=== PATIENT | female | born 1980 | race Caucasian/White ===

== ENCOUNTER 2021-05-04 12:15 | Inpatient (IN) | payer MEDICARE, MEDICAID, SELFPAY ==
[2021-05-04 12:58] VITALS: BMI 26.4
[2021-05-04 13:05] VITALS: BP 117/80; PULSE 83; RESP 16; TEMP 37.1; O2SAT 99
[2021-05-04 14:00] VITALS: BP 117/80; PULSE 83; RESP 16; TEMP 37.1; O2SAT 99
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
[2021-05-04 17:00] LABS: Glucose Point of Care 181 mg/dL (70-110)
[2021-05-04] MEDS: diclofenac 75 mg DR Tablet PO (17:16)
[2021-05-04] MEDS: metformin 500 mg Tablet 1000 MG PO (17:17)
[2021-05-04] MEDS: gemfibrozil 600 mg Tablet PO (17:17)
[2021-05-04] MEDS: gabapentin 400 mg Capsule 800 MG PO ×2 (17:17→20:31)
[2021-05-04] MEDS: magnesium oxide 400 mg tablet PO ×2 (17:17→20:32)
[2021-05-04] MEDS: famotidine 20 mg Tablet PO (17:18)
[2021-05-04] MEDS: insulin lispro 100 unit/1 mL 10 UNIT SUBCUT (17:27)
[2021-05-04 20:17] VITALS: BP 129/79; PULSE 91; RESP 18; TEMP 36.6; O2SAT 99
[2021-05-04] MEDS: tizanidine 4 mg Tablet PO (20:32)
[2021-05-04] MEDS: hyDROXYzine 25 mg Capsule 50 MG PO (20:32)
[2021-05-04 20:48] LABS: Glucose Point of Care 207 mg/dL (70-110)
[2021-05-05 06:00] VITALS: BP 114/75; PULSE 72; RESP 18; TEMP 36.7; O2SAT 97
[2021-05-05 06:40] LABS: Glucose Point of Care 212 mg/dL (70-110)
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
[2021-05-05] MEDS: insulin lispro 100 unit/1 mL 10 UNIT SUBCUT ×3 (09:06→17:05)
[2021-05-05] MEDS: sertraline 50 mg Tablet 100 MG PO (11:40)
[2021-05-05] MEDS: lisinopril 10 mg Tablet PO (11:42)
[2021-05-05] MEDS: buPROPion XL (24 HR) 150 mg Tablet PO (11:42)
[2021-05-05] MEDS: hydroxychloroquine 200 mg Tablet PO (11:43)
[2021-05-05] MEDS: cetirizine 10 mg Tablet PO ×2 (11:44→17:05)
[2021-05-05] MEDS: glimepiride 2 mg Tablet PO (11:44)
[2021-05-05] MEDS: gemfibrozil 600 mg Tablet PO ×2 (11:44→17:04)
[2021-05-05] MEDS: ascorbic acid 500 mg Tablet 1000 MG PO (11:45)
[2021-05-05] MEDS: magnesium oxide 400 mg tablet PO ×3 (11:46→20:55)
[2021-05-05] MEDS: famotidine 20 mg Tablet PO ×2 (11:46→17:05)
[2021-05-05] MEDS: hyDROXYzine 25 mg Capsule 50 MG PO ×2 (11:54→20:56)
[2021-05-05] MEDS: gabapentin 400 mg Capsule 800 MG PO ×3 (11:54→20:55)
[2021-05-05 11:57] LABS: Glucose Point of Care 370 mg/dL (70-110)
[2021-05-05] MEDS: diclofenac 75 mg DR Tablet PO ×2 (12:22→17:19)
[2021-05-05] MEDS: cholecalciferol (vitamin D3) 5,000 unit Tablet 10000 UNIT PO (12:22)
[2021-05-05] MEDS: metformin 500 mg Tablet 1000 MG PO ×2 (12:23→17:04)
[2021-05-05 14:00] VITALS: BP 148/90; PULSE 94; RESP 18; TEMP 36.4; O2SAT 99
--- NOTE | 2021-05-05 14:27 | PC.NURSE ---
Medications- Medications pulled for patient, patient then refused to take medications due to she did not read the packages before opening. Also stated that she takes several of her medications at different times than currently ordered. Med list written for patient, confirmed times and doses with patient. Dr notified, orders given to adjust medications to patient's request. All initial meds that were pulled were wasted. All meds re-pulled, reviewed one at a time with patient then patient took meds as ordered.
[2021-05-05 14:37] LABS: Glucose Urine UA 4+ (Normal); Ketones Urine Negative (Negative); Protein Urine Neg (Negative); Urine Color Yellow (Yellow); pH Urine 5 (5-7)
[2021-05-05 14:38] LABS: Bilirubin Urine Neg (Negative); Blood Urine Neg (Negative); Leukocyte Esterase Urine Negative (Negative); Nitrate Urine Negative (Negative); Urobilinogen Urine Norm (Negative)
[2021-05-05 14:39] LABS: Add Urine Culture? No; Bacteria Urine 1+ /hpf; Squamous Epithelial Cell Urine 25-40 /hpf (0-5); Urine Appearance SL Hazy (CLEAR)
[2021-05-05] MEDS: tizanidine 4 mg Tablet PO (15:01)
[2021-05-05 16:00] LABS: Glucose Point of Care 285 mg/dL (70-110)
[2021-05-05 17:02] LABS: Glucose Point of Care 262 mg/dL (70-110)
[2021-05-05] MEDS: lurasidone 20 mg Tablet 40 MG PO (17:04)
[2021-05-05] MEDS: sitagliptin 100 mg Tablet PO (17:18)
[2021-05-05] MEDS: ondansetron 4 MG Tablet PO (19:28)
--- NOTE | 2021-05-05 19:31 | PC.NURSE ---
Zofran 4mg PO given for C/O nausea.
[2021-05-05 20:30] VITALS: BP 104/72; PULSE 89; RESP 17; TEMP 36.7; O2SAT 100
[2021-05-05] MEDS: atorvastatin 40 mg Tablet PO (20:56)
[2021-05-05 21:16] LABS: Glucose Point of Care 293 mg/dL (70-110)
[2021-05-06] MEDS: ondansetron 4 MG Tablet PO (02:51)
[2021-05-06] MEDS: tizanidine 4 mg Tablet PO (02:51)
[2021-05-06 05:39] VITALS: BP 104/72; PULSE 89; RESP 17; TEMP 36.7; O2SAT 100
[2021-05-06 07:51] LABS: Glucose Point of Care 280 mg/dL (70-110)
[2021-05-06] MEDS: sertraline 50 mg Tablet 100 MG PO (08:52)
[2021-05-06] MEDS: insulin lispro 100 unit/1 mL 10 UNIT SUBCUT ×3 (08:52→18:19)
[2021-05-06 11:32] LABS: Glucose Point of Care 154 mg/dL (70-110)
--- NOTE | 2021-05-06 13:48 | P.NPUPN_ITS ---
Subjective NPU Subjective: Interval history: Patient presents today reporting that she is adjusting to being back on her medication after not taking it, not eating and not taking her insulin. She reports that she has been in contact with her children that makes her feel better and she is feeling a little less irritable but continues to be somewhat ambivalent about treatment overall. A little later in the afternoon she was unresponsive in her room though her vitals were stable her blood sugar was 66 and so we gave her a shot of glucagon. Mental Status Exam MSE Comments: This is an overweight, versus obese, white female, with hospital scrubs on, with adequate grooming, and eye contact. No abnormal movements except for mild psychomotor retardation. Cooperative with exam in mild distress. Speech was decreased rate and volume. Mood described as okay I guess; affect congruent. Thought process, organized. Thought content: patient denied suicidal ideation and denied homicidal ideation. There were no delusions reported or noted, patient denied any auditory or visual hallucinations. Attention, concentration, and memory appear intact but were not formally tested. She is alert and oriented times three. Insight and judgment are limited, impulse control limited. Vitals/I&O/Wt Last Vital Signs Temp 98.0 F 05/06/21 05:39 Pulse 89 05/06/21 05:39 Resp 17 05/06/21 05:39 BP 104/72 05/06/21 05:39 Pulse Ox 100 05/06/21 05:39 Data NPU : 05/05/21 10:34 A&P Additional A&P Information (1) PTSD (post-traumatic stress disorder): (2) Borderline personality disorder: (3) Suicidal ideation: (4) Depression: Additional A&P Information This is a 41-year-old, white female, with post-traumatic stress disorder, borderline personality disorder, anxiety disorder, unspecified, suicidal ideation, and recently been non-adherent with her medication, who presents open to medication adjustments as long as they do not create problems if her status were to change. RECOMMENDATION AND PLAN: 1. Continue current medication. She will continue to stabilize on her normal home meds she has been missing as well as her insulin. 2. Encourage individual, group, and milieu therapy. 3. Continue q-15 minute checks for safety. Involuntary Hold Information 96 Hour Hold: 96 Hour Involuntary Admission: No Attestations NPU Medical Necessity Statement*: Inpatient hospitalization is medically necessary and the clinically appropriate intervention, at this time. We will monitor medications and make changes as indicated. Likely length of stay is 1-3 days. Coding Level of Care Code Acute Assistant Center Director for Mir Rosas
[2021-05-06 14:00] VITALS: BP 138/84; PULSE 81; RESP 14; TEMP 36.7; O2SAT 97
[2021-05-06 14:15] LABS: Glucose Point of Care 67 mg/dL (70-110)
--- NOTE | 2021-05-06 14:36 | PC.NURSE ---
Patient has remained isolative to room throughout morning. Did not get up for either breakfast or lunch. Patient is responsive to painful stimuli. Frequently repositions self in bed, gets pillows and blankets when needed but will not open eyes and interact with staff. VS have remained stable. FSBS rechecked at 1415 d/t receiving insulin but not eating lunch. FSBS 66 at that time. Patient able to remain sitting once staff assisted to bedside but would not open eyes or drink juice. notified, new orders for 1 mg IM glucagon. Administered to left glute at 1435. FSBS 129 at recheck at 1445. Patient remains in bed resting at this time.
[2021-05-06 14:52] LABS: Glucose Point of Care 129 mg/dL (70-110)
[2021-05-06 16:35] LABS: Glucose Point of Care 237 mg/dL (70-110)
[2021-05-06 21:00] VITALS: RESP 13
--- NOTE | 2021-05-06 21:55 | PC.NURSE ---
At 21:20 accu-check ( blood sugar ) was 61. Patients V/S were: BP;111/73, P; 67, O2 sat; 95% (RA)' Resp;16. Patient appeared raiza-Conscience, would blink with eyes closed upon verbal command, uncooperative upon assessment and oral intake offered (Applejuce,Pudding). Patient appeared to have awareness of verbal requests however unwilling to physically respond. Patient has history of similar behavior today during day shift was also given Glucagon 1mg IM for BS of low 60's. Dr Saha was notified and a telephone order for one time dose of Glucagon 1mg IM was received. Also order for Hospitalist Consult. Dr. Saha said he would contact Dr. Soriano (watermelon inspector Hospitalist) for DM II consult. Glucagon 1mg IM given at 22:00 Will re-check B.S. at 22:30. Upon reassessment at 22:30 BS was 229 V/S Stable / WNL. Patient continues to appear raiza-conscience.
[2021-05-06 22:06] LABS: Glucose Point of Care 61 mg/dL (70-110)
[2021-05-06 22:39] LABS: Glucose Point of Care 229 mg/dL (70-110)
[2021-05-06 23:39] LABS: Estmated Average Glucose 249; Hemoglobin A1C 10.3 % (4.0-6.0)
[2021-05-06 23:45] LABS: Anion Gap 15.3 (5-19); Blood Urea Nitrogen 23 mg/dL (6-20); Carbon Dioxide 21 mmol/L (22-29); Chloride 103 mmol/L (98-107); Glomerular Filtration Rate 92.2 mL/min (90-130); Glucose 244 mg/dL (65-115); Magnesium 1.8 mg/dL (1.7-2.3); Osmolality Calculated 292 mOsm/kg (285-295); Potassium 4.3 mmol/L (3.5-5.1); Sodium 135 mmol/L (136-145)
[2021-05-07 01:28] LABS: Glucose Point of Care 94 mg/dL (70-110)
[2021-05-07 03:06] LABS: Glucose Point of Care 66 mg/dL (70-110)
--- NOTE | 2021-05-07 04:33 | PC.NURSE ---
Patient last blood sugar check was 66. Patient is still being uncooperative in not drinking apple juice. Approximately 3-4 ml of apple juice was administered through a straw. Patient can be seen grimacing and fluttering eyes as well as swallowing occasionally. We tried to stimulate patient by sitting her up, pushing on pressure points and applying a bag of ice for a period of time, but patient still would not participate. Patient's shirt was changed due to apple juice thata was spit out and they were laid on back. They were Watched from the door and patient had repositioned self to side position of comfort, and she opened eyes to look at wall and shut eyes then yawned. Charge nurse notified Dr. Soriano. 1mg Glucagon IM was ordered.
[2021-05-07 05:20] LABS: Glucose Point of Care 80 mg/dL (70-110)
[2021-05-07 06:00] VITALS: BP 111/68; PULSE 68; RESP 18; O2SAT 95
[2021-05-07 06:10] LABS: Glucose Point of Care 283 mg/dL (70-110)
--- NOTE | 2021-05-07 06:23 | PC.NURSE ---
Glucagon 1mg IM given R gluteal per physians order.
--- NOTE | 2021-05-07 06:43 | P.CONIM_ITS ---
Providers/Reason For Consult Consulting Physician/Specialty*: Frase/Hosptialist Reason for Consult*: low blood sugar, high blood sugar in patient with diabetes Attending Physician: Kyle Saha MD Primary Care Provider: Unknown History of Present Illness History of Present Illness Aurelia Bowers is a 41 year old female admitted to neuropsychiatric unit on 05/04/21. Originally presented to [facility] on 05/02/21 with suicidal ideation. Reported starving herself in an attempt to . She also quit taking her medications. Reported that she might consider overdosing on her home insulin. She has reported to the psychiatrist she has labile blood sugars. She has a history of diabetes mellitus type II. Since arriving here at [facility], she was put on what was listed as her usual home diabetic meds by outside facility of levimir 25 units twice per day, novolog 10 units tidwm, glimiperide, metformin, januvia. Accuchecks are as noted here since arrival Laboratory Tests 05/04/21 05/04/21 05/05/21 16:57 20:41 06:27 POC Glucose 181 H 207 H 212 H 05/05/21 05/05/21 05/05/21 11:54 15:58 16:53 POC Glucose 370 H 285 H 262 H 05/05/21 05/06/21 05/06/21 21:08 07:48 11:30 POC Glucose 293 H 280 H 154 H 05/06/21 05/06/21 05/06/21 14:13 14:49 16:33 POC Glucose 67 L 129 H 237 H 05/06/21 05/06/21 05/07/21 21:20 22:36 01:24 POC Glucose 61 L 229 H 94 05/07/21 05/07/21 05/07/21 03:02 05:17 06:08 POC Glucose 66 L 80 283 H 05/07/21 05/07/21 07:19 09:24 POC Glucose 268 H 104 During the episodes in which she has had the low blood sugars in the last 24 hours, patient has not been willing or participatory in attempts to take juice or peanut butter and crackers orally. She has been given glucagon instead. Her behavior here as well as at [facility] has consisted of times when she will not respond to anything verbally. She would not open her eyes nor converse with me. That includes the times when her blood sugars have been low. Dr. Saha says that he does not think that she is truly unresponsive based on how she has been but he would like opinion. The extent of history documented here is obtained from review of [facility] ER records, review of admission notes and one-on-one discussion with Dr. Saha and nursing staff. Dr. Saha requested assistance with diabetes management given the repeated episodes of hypoglycemia and significant blood sugars variability. Review of Systems General: Reports: ROS unobtainable due to mental status Meds/Allergies Home Medications and Allergies Home Medications Medication Instructions Recorded Confirmed Last Taken Type bupropion HCl 150 mg PO DAILY 05/04/21 05/04/21 04/28/21 08:00 History am glimepiride 2 mg PO DAILY 05/04/21 05/04/21 04/28/21 History 2 mg insulin detemir U-100 [Levemir 25 unit SUBCUT BID 05/04/21 05/04/21 04/28/21 History FlexTouch U-100 Insuln] 25 units lurasidone [Latuda] 40 mg PO DAILY 05/04/21 05/04/21 04/28/21 History 40 mg fluphenazine HCl 2.5 mg PO DAILY 05/07/21 05/07/21 Unknown History Allergies Allergy/AdvReac Type Severity Reaction Status Date / Time [place] And Derivatives Allergy Mild ALGY-Difficulty Verified 05/04/21 15:44 Breathing doxepin Allergy Unknown Unknown Verified 05/07/21 08:45 prednisone Allergy Unknown Unknown Verified 05/07/21 08:45 codeine Allergy ALGY-Difficulty Verified 05/04/21 14:47 Breathing hydrocodone Allergy ALGY-Difficulty Verified 05/04/21 14:47 Breathing Iodinated Contrast Media Allergy ALGY-Difficulty Verified 05/04/21 14:47 Breathing Current Medications Current Medications Generic Name Dose Route Start Last Admin Trade Name Freq PRN Reason Stop Dose Admin Ascorbic Acid 1,000 mg 05/05/21 12:00 05/06/21 12:19 Ascorbic Acid 500 Mg Tablet PO Not Given QNOON MICHELLE Atorvastatin Calcium 40 mg 05/04/21 21:00 05/07/21 05:33 Atorvastatin 40 Mg Tablet PO Not Given BEDTIME MICHELLE Bupropion HCl 150 mg 05/05/21 09:00 05/06/21 11:22 Bupropion Xl (24 Hr) 150 Mg Tablet PO Not Given DAILY [facility] Cetirizine HCl 10 mg 05/05/21 11:00 05/06/21 18:19 Cetirizine 10 Mg Tablet PO Not Given BID [facility] Diclofenac Sodium 75 mg 05/04/21 18:00 05/06/21 18:[address] Tablet PO Not Given BID [facility] Famotidine 20 mg 05/04/21 18:00 05/06/21 18:19 Famotidine 20 Mg Tablet PO Not Given BID [facility] Ferrous Sulfate 300 mg 05/05/21 12:00 05/06/21 12:19 Ferrous Sulfate 300 Mg/5 Ml Udc PO Not Given QNOON [facility] Gabapentin 800 mg 05/04/21 17:00 05/07/21 05:33 Gabapentin 400 Mg Capsule PO Not Given QID [facility] Gemfibrozil 600 mg 05/04/21 18:00 05/06/21 18:19 Gemfibrozil 600 Mg Tablet PO Not Given BID [facility] Glimepiride 2 mg 05/05/21 11:00 05/06/21 11:23 Glimepiride 2 Mg Tablet PO Not Given DAILY [facility] Hydroxychloroquine Sulfate 200 mg 05/05/21 09:00 05/06/21 11:23 Hydroxychloroquine 200 Mg Tablet PO Not Given DAILY [facility] Hydroxyzine Pamoate 50 mg 05/04/21 13:05 05/05/21 20:56 Hydroxyzine 25 Mg Capsule PO 50 mg Q6H PRN Administration ANXIETY Lisinopril 10 mg 05/05/21 09:00 05/06/21 11:23 Lisinopril 10 Mg Tablet PO Not Given DAILY [facility] Lurasidone HCl 40 mg 05/05/21 17:00 05/06/21 18:18 Lurasidone 20 Mg Tablet PO Not Given 1700 [facility] Magnesium Oxide 400 mg 05/04/21 17:00 05/07/21 05:34 Magnesium Oxide 400 Mg Tablet PO Not Given QID [facility] Metformin HCl 1,000 mg 05/04/21 18:00 05/06/21 18:20 Metformin 500 Mg Tablet PO Not Given BIDWM [facility] Ondansetron HCl 4 mg 05/04/21 13:05 05/06/21 02:51 Ondansetron 4 Mg Tablet PO 4 mg Q6H PRN Administration NAUSEA AND VOMITING Sertraline HCl 100 mg 05/05/21 09:00 05/06/21 08:52 Sertraline 50 Mg Tablet PO 100 mg DAILY MICHELLE Administration Sitagliptin Phosphate 100 mg 05/05/21 18:00 05/06/21 18:20 Sitagliptin 100 Mg Tablet PO Not Given QPM MICHELLE Tizanidine HCl 4 mg 05/04/21 16:35 05/06/21 02:51 Tizanidine 4 Mg Tablet PO 4 mg TID PRN Administration SPASMS Vitamin D 10,000 unit 05/06/21 12:00 05/06/21 12:19 Cholecalciferol (Vitamin D3) 5,000 Unit Tablet PO Not Given QNOON MICHELLE Additional Medication Information [facility] in [place]. Only medications filled in the last 3 months include the 5 medications listed under home medications above. The home medication list from outside records included numerous other medications not listed. External pharmacy records viewable here also had a few shown not present on the filled list from [facility]. Patient herself will not verbally verify pharmacy that she utilizes it is possible that she utilizes more than one and other medications were obtained elsewhere. PFSH Acute PFSH: Medical History (Updated 05/07/21 @ 10:14 by Shreya Soriano MD) COPD (chronic obstructive pulmonary disease) Depression Diabetes mellitus type 2, insulin dependent GERD (gastroesophageal reflux disease) Hyperlipidemia Peripheral vascular disease Surgical History (Updated 05/07/21 @ 08:41 by Shreya Soriano MD) History of History of cholecystectomy History of hernia repair History of tympanostomy Family History (Updated 05/07/21 @ 08:54 by Shreya Soriano MD) Mother Diabetes Hypertension Hyperlipidemia Brother Heart disease Social History (Updated 05/07/21 @ 08:54 by Shreya Soriano MD) Smoking and tobacco status: smoker, details unknown Alcohol intake: unknown Substance/Drug Use: unknown Marital status details: , blind per outside records Female Reproductive History: Date of last menstrual period: 04/19/21 Other PFSH information: All of the history documented here is obtained from outside medical records and not able to be verified with the patient. Vitals/I&O/Wt Last Vital Signs Temp 98.0 F 05/06/21 14:00 Pulse 68 05/07/21 06:00 Resp 18 05/07/21 06:00 BP 111/68 05/07/21 06:00 Pulse Ox 95 05/07/21 06:00 Physical Exam Narrative: EXAM NARRATIVE: Constitutional: Lying in bed with a blanket over her, does not move or awaken when touched or called out to, not acutely ill-appearing HEENT: Pupils are equally reactive bilaterally, corneal reflexes intact, nasopharynx is clear, lips are mildly dry as are visible mucosal membranes, I did not evaluate posterior oropharynx currently due to lack of cooperation Neck: Supple Respiratory: Clear to auscultation bilaterally Cardiovascular: Regular rate and rhythm, no murmurs gallops or rubs Abdomen: Soft, nontender, nondistended, positive bowel sounds, surgical scars noted in the lower abdomen, noted areas where insulin has likely been injected Extremities: No pitting edema, normal range of motion wrist, elbows, knees Skin: Dry, no visible rashes, no large areas of bruising, no acute sores noted Neuro: No abnormal movements, does not resist movement of arms or legs, hand does not fall on face when dropped from above, upon attempting to open eyes she resisted initially and then relaxed, after I had laid her in a supine position for adequate examination of her abdomen she voluntarily rolled over moving all extremities and scratching her nose with her hand before curling up back lying on her right side as she was when I first walked in the room Data Labs: Other Labs: Laboratory Results Sodium 135 mmol/L (136-1 45) L 05/06/21 23:15 Potassium 4.3 mmol/L (3.5-5 .1) 05/06/21 23:15 Chloride 103 mmol/L (98-10 7) 05/06/21 23:15 Carbon Dioxide 21 mmol/L (22-29) L 05/06/21 23:15 Anion Gap 15.3 (5-19) 05/06/21 23:15 BUN 23 mg/dL (6-20) H 05/06/21 23:15 Creatinine 0.7 mg/dL (0.5-0. 9) 05/06/21 23:15 GFR Calculation 92.2 mL/min (90-1 30) 05/06/21 23:15 Glucose 244 mg/dL (65-115 ) H 05/06/21 23:15 POC Glucose 104 mg/dL (70-110 ) 05/07/21 09:24 Estimat Average Gl ucose 249 05/06/21 23:15 Hemoglobin A1c 10.3 % (4.0-6.0) H 05/06/21 23:15 Calculated Osmolal ity 292 mOsm/kg (285- 295) 05/06/21 23:15 Calcium 9.0 mg/dL (8.5-10 .5) 05/06/21 23:15 Magnesium 1.8 mg/dL (1.7-2. 3) 05/06/21 23:15 Urine Color Yellow (Yellow) 05/04/21 10:34 Urine Appearance Sl hazy (CLEAR) 05/04/21 10:34 Urine pH 5 (5-7) 05/04/21 10:34 Ur Specific Gravit y 1.020 (1.005-1.0 30) 05/04/21 10:34 Urine Protein Neg (Negative) 05/04/21 10:34 Urine Glucose (UA) 4+ (Normal) H 05/04/21 10:34 Urine Ketones Negative (Negati ve) 05/04/21 10:34 Urine Blood Neg (Negative) 05/04/21 10:34 Urine Nitrate Negative (Negati ve) 05/04/21 10:34 Urine Bilirubin Neg (Negative) 05/04/21 10:34 Urine Urobilinogen Norm mg/dL (Negat luciana) 05/04/21 10:34 Ur Leukocyte Narcisa ase Negative (Negati ve) 05/04/21 10:34 Urine RBC None /hpf (0-2) 05/04/21 10:34 Urine WBC None /hpf (0-5) 05/04/21 10:34 Ur Squamous Epith Cells 25-40 /hpf (0-5) H 05/04/21 10:34 Amorphous Sediment Not Reportable 05/04/21 10:34 Urine Bacteria 1+ /hpf (NONE) H 05/04/21 10:34 A&P Assessment and plan (1) Hypoglycemia: Status: Acute (2) Diabetes mellitus type 2, insulin dependent: With hyperglycemia, hemoglobin A1c 10 indicative of poor control chronically with blood sugars averaging around 250 on a regular basis Status: Chronic Additional A&P Information External records with mentioned history of hypertension, hyperlipidemia, peripheral vascular disease and COPD although I have no confirmation of such and patient is not presently providing history that would allow verification Nicotine dependence, with nicotine patch currently ordered if needed along with nicotine gum if needed Recommendations are as follows: Stop glimepiride given recurrent episodes of hypoglycemia Changed to low-dose sliding scale insulin rather than scheduled insulin at meals Decrease Levemir to 10 units twice a day Stop metformin and Januvia as not currently taking per medication review Continue regular Accu-Cheks and add hander in Accu-Chek as well Given that patient is not willing to take juices or peanut butter orally when her blood sugar is low I have ordered some Glutose gel that should be a bit easier to administer and be absorbed more quickly so we can decrease the frequency of times that glucagon has to be used as I am sure that is contributing to the lability of blood sugars somewhat right now Keep a close eye on overall oral intake; if not eating consistently may have to further adjust insulin After reviewing all of the medications on her home medication list at [facility] and what had been ordered here compared to the medications patient is filled at [facility], combined with review of vital signs, blood sugars, labs here and some of the labs done at [facility], I am going to take things a step further and recommend stopping the following medications: Atorvastatin, diclofenac, gemfibrozil, gabapentin, lisinopril, hydroxychloroquine and, Pepcid, cetirizine, iron sulfate, vitamin C, vitamin D. Stopping any of these medications short- term is not going to cause significant problems medically and given that I am not certain that she is taking any of them chronically from available information it is worthwhile in the controlled setting that we have here I think to go and stop them and see if there is any clinical improvement otherwise. Will order a lipid panel as that is probably the easiest thing that we can try to verify. Blood pressures have been normal range and lisinopril may need to be resumed. Should patient indicate that she does take these medications regularly upon awakening and interacting more, ideally want to get verification of what pharmacy she fills the medications from if at all possible before resuming or at least some note from a primary care or other prescribing provider explaining what the reasons are for the medications. From the medication list at outside facility I suspect strongly that polypharmacy at least at times has played into some of her pathology. Thank you for consultation, we will follow along with above changes. Coding Level of Care Code Acute Insurance Customer Service Specialist for Mir Rosas Diagnoses Hypoglycemia E16.2 Diabetes mellitus type 2, insulin dependent E11.9; Z79.4
[2021-05-07 07:22] LABS: Glucose Point of Care 268 mg/dL (70-110)
[2021-05-07 09:26] LABS: Glucose Point of Care 104 mg/dL (70-110)
[2021-05-07 11:51] LABS: Glucose Point of Care 82 mg/dL (70-110)
[2021-05-07 12:42] VITALS: BP 111/73; PULSE 73; RESP 16; O2SAT 96
--- NOTE | 2021-05-07 12:44 | PC.NURSE ---
Patient continues to not answer any direct questions when asked. Patient was lying on her back and when I told her that she had a phone call which was her she rolled over to her right side. I also offered a nicotine patch or karen gum because chart states she is an everyday smoker. Current BP 111/73 Pulse 71 RR 17. Will continue to monitor.
--- NOTE | 2021-05-07 13:36 | W.PM.NPUPNS ---
Subjective NPU Subjective: Interval history: Patient presents today not interactive in the opportunities that I took to elicit interaction. She was seen by a hospitalist at my request and that Had the same experience. Was a certain aspect of this that has been noted by staff with concerns for playing possum. This was a concern that was expressed prior to being transferred. I relayed to her what we were planning what the consultants was planning and we will continue to monitor for changes. Mental Status Exam MSE Comments: This is an overweight, versus obese, white female, with hospital scrubs on, with adequate grooming, and no eye contact. No abnormal movements except for psychomotor retardation. Uncooperative with exam in no acute distress. Speech was absent. Mood not described; affect sleeping. Thought process, not noted. Thought content: patient did not answer questions but had no aggression directed at her self or others, and no report or signs of delusions or perceptual disturbances. She is not alert and appears unarousable with stable vitals. Insight and judgment are impaired, impulse control impaired. Vitals/I&O/Wt Last Vital Signs Temp 98.0 F 05/06/21 14:00 Pulse 73 05/07/21 12:42 Resp 16 05/07/21 12:42 BP 111/73 05/07/21 12:42 Pulse Ox 96 05/07/21 12:42 Data NPU : 05/06/21 23:15 A&P Additional A&P Information (1) PTSD (post-traumatic stress disorder): (2) Borderline personality disorder: (3) Suicidal ideation: (4) Depression: Additional A&P Information This is a 41-year-old, white female, with post-traumatic stress disorder, borderline personality disorder, anxiety disorder, unspecified, suicidal ideation, and recently been non-adherent with her medication, who presents open to medication adjustments as long as they do not create problems if her status were to change. RECOMMENDATION AND PLAN: 1. Continue current medication. Except will make the changes as directed by hospitalist given her presentation and will monitor for changes. 2. Encourage individual, group, and milieu therapy. 3. Continue q-15 minute checks for safety. 4. Appreciate hospitalist consult and will follow recommendations and monitor for changes in her presentation. Involuntary Hold Information 96 Hour Hold: 96 Hour Involuntary Admission: No Attestations NPU Medical Necessity Statement*: Inpatient hospitalization is medically necessary and the clinically appropriate intervention, at this time. We will monitor medications and make changes as indicated. Likely length of stay is 2-4 days. Coding Level of Care Code Acute Wheel Of Fortune Dealer for Mir Rosas
[2021-05-07 14:00] VITALS: BP 104/72; PULSE 79; RESP 17; TEMP 36.4; O2SAT 93
[2021-05-07 16:33] LABS: Glucose Point of Care 254 mg/dL (70-110)
[2021-05-07] MEDS: magnesium oxide 400 mg tablet PO (17:18)
[2021-05-07] MEDS: lurasidone 20 mg Tablet 40 MG PO (17:18)
[2021-05-07] MEDS: insulin lispro 100 unit/1 mL SUBCUT (17:21)
[2021-05-07 19:50] VITALS: BMI 26.4
[2021-05-07 20:03] LABS: Glucose Point of Care 436 mg/dL (70-110)
[2021-05-07] MEDS: insulin lispro 100 unit/1 mL 12 UNIT SUBCUT (20:37)
[2021-05-07 21:11] VITALS: BP 104/68; PULSE 74; RESP 17; TEMP 36.9; O2SAT 98
[2021-05-07 21:23] LABS: Amphetamines Level NEGATIVE ng/mL (<500); Barbiturates NEGATIVE ng/mL (<300); Benzodiazepines NEGATIVE ng/mL (<100); Cocaine Metabolite NEGATIVE ng/mL (<150); Marijuana Metabolite NEGATIVE ng/mL (<20); Methadone Metabolite NEGATIVE ng/mL (<100); Opiates NEGATIVE ng/mL (<100); Oxidant NEGATIVE mcg/mL (<200); Phencyclidine NEGATIVE ng/mL (<25); Urine pH 5.2 (4.5-9.0)
[2021-05-07 21:40] LABS: Glucose Point of Care 361 mg/dL (70-110)
--- NOTE | 2021-05-07 21:42 | PC.NURSE ---
FSBS was 436 at approx 2030, notified Dr. Soriano and rcvd one time order for 12 units Insulin Lispro SQ NOW and instructed to hold sliding scale Insulin Lispro due at 2100. Insulin given per now dose order. Patient refused 2100 PO meds but took all insulin due.
[2021-05-08 00:01] LABS: Glucose Point of Care 272 mg/dL (70-110)
[2021-05-08 06:00] VITALS: BP 98/68; PULSE 67; RESP 20; TEMP 36.6; O2SAT 97; BMI 26.4
[2021-05-08 08:12] LABS: Glucose Point of Care 198 mg/dL (70-110)
[2021-05-08] MEDS: sertraline 50 mg Tablet 100 MG PO (08:24)
[2021-05-08] MEDS: buPROPion XL (24 HR) 150 mg Tablet PO (08:24)
[2021-05-08] MEDS: magnesium oxide 400 mg tablet PO ×4 (08:24→21:52)
[2021-05-08] MEDS: insulin lispro 100 unit/1 mL SUBCUT ×4 (09:19→21:40)
[2021-05-08 11:25] LABS: Glucose Point of Care 246 mg/dL (70-110)
--- NOTE | 2021-05-08 11:33 | W.PM.NPUPNS ---
Subjective NPU Subjective: Interval history: Patient presents today more active than yesterday but still less active. She was really frustrated with the changes made by the hospitalist saying that she had been on those medications but we discussed the fact that there was no indication to the pharmacy that she had been and that there was significant concern that the polypharmacy was causing her being lethargic to the level she had been on a few occasions even prior to admission. Also concerns relating to her sugars bottoming out as well. We discussed allowing her to stabilize off the medic patients that were stopped as well as having the hospitalist continue to monitor for the need to make changes. Mental Status Exam MSE Comments: This is an overweight, versus obese, white female, with hospital scrubs on, with adequate grooming, and eye contact. No abnormal movements except for mild psychomotor retardation. More cooperative with exam in mild distress. Speech was slightly decreased rate and volume. Mood frustrated; affect congruent. Thought process, organized. Thought content: patient denies suicidal or homicidal ideation, no delusions reported or noted, she denied auditory visual hallucinations. Attention and Transient intact memory was more reliable but number formally tested. She alert and oriented x3.. Insight and judgment are impaired, impulse control impaired. Vitals/I&O/Wt Last Vital Signs Temp 97.8 F 05/08/21 06:00 Pulse 67 05/08/21 06:00 Resp 20 H 05/08/21 06:00 BP 98/68 05/08/21 06:00 Pulse Ox 97 05/08/21 06:00 Weight last 48 hrs Weight 63.503 kg Weight 63.503 kg Data NPU : 05/06/21 23:15 A&P Additional A&P Information (1) PTSD (post-traumatic stress disorder): (2) Borderline personality disorder: (3) Suicidal ideation: (4) Depression: Additional A&P Information This is a 41-year-old, white female, with post-traumatic stress disorder, borderline personality disorder, anxiety disorder, unspecified, suicidal ideation, and recently been non-adherent with her medication, who presents open to medication adjustments as long as they do not create problems if her status were to change. RECOMMENDATION AND PLAN: 1. Continue current medication. Except will make the changes as directed by hospitalist given her presentation and will monitor for changes. 2. Encourage individual, group, and milieu therapy. 3. Continue q-15 minute checks for safety. 4. Appreciate hospitalist consult and will follow recommendations and monitor for changes in her presentation. Involuntary Hold Information 96 Hour Hold: 96 Hour Involuntary Admission: No Attestations NPU Medical Necessity Statement*: Inpatient hospitalization is medically necessary and the clinically appropriate intervention, at this time. We will monitor medications and make changes as indicated. Likely length of stay is 1-3 days. Coding Level of Care Code Acute Mattress Specialist for Mir Rosas
--- NOTE | 2021-05-08 12:50 | P.PN_ITS ---
Subjective Subjective: Interval history: Pt was not physically seen and chart review was done. She is currently on levemir 10 units BID and insulin slidin scale. Pt reported to consulting physician that she is no longer on metformin or januvia. Blood sugars have been 240-300 range on POC. Discussed with social staff worker, no acute events reported overnight. Patient is starting to eat and feeling better. Vitals/I&O/Wt Last Vital Signs Temp 97.8 F 05/08/21 06:00 Pulse 67 05/08/21 06:00 Resp 20 H 05/08/21 06:00 BP 98/68 05/08/21 06:00 Pulse Ox 97 05/08/21 06:00 Weight last 48 hrs Weight 63.503 kg Weight 63.503 kg Physical Exam Narrative: EXAM NARRATIVE: Not seen today. Chart review done and medications adjusted. Data : 05/06/21 23:15 A&P Assessment and plan (1) Hypoglycemia: Status: Acute (2) Diabetes mellitus type 2, insulin dependent: With hyperglycemia, hemoglobin A1c 10 indicative of poor control chronically with blood sugars averaging around 250 on a regular basis Status: Chronic Additional A&P Information External records with mentioned history of hypertension, hyperlipidemia, peripheral vascular disease and COPD although I have no confirmation of such and patient is not presently providing history that would allow verification Nicotine dependence, with nicotine patch currently ordered if needed along with nicotine gum if needed Recommendations are as follows: Stop glimepiride given recurrent episodes of hypoglycemia Changed to low-dose sliding scale insulin rather than scheduled insulin at meals POC range 250-300 range. Will increase levemir to 15 BID. Keep current sliding scale. Stop metformin and Januvia as not currently taking per medication review Continue regular Accu-Cheks and add coal tram driver Accu-Chek as well Given that patient is not willing to take juices or peanut butter orally when her blood sugar is low, Continue glutose gel if needed incase blood sugar drops. After reviewing all of the medications we recommend stopping the following medications: Atorvastatin, diclofenac, gemfibrozil, gabapentin, lisinopril, hydroxychloroquine and, Pepcid, cetirizine, iron sulfate, vitamin C, vitamin D. Stopping any of these medications short-term is not going to cause significant problems medically and given that I am not certain that she is taking any of them chronically from available information it is worthwhile in the controlled setting that we have here I think to go and stop them and see if there is any clinical improvement otherwise. Attestations Medical Necessity Statement*: as per primary team Coding Level of Care Code Acute Head End Desizing Machine Operator for Robg Fwd Diagnoses Hypoglycemia E16.2 Diabetes mellitus type 2, insulin dependent E11.9; Z79.4
[2021-05-08 14:00] VITALS: BP 130/83; PULSE 85; RESP 16; TEMP 36.9; O2SAT 98
[2021-05-08 16:30] LABS: Glucose Point of Care 262 mg/dL (70-110)
[2021-05-08] MEDS: lurasidone 20 mg Tablet 40 MG PO (17:08)
[2021-05-08 20:10] LABS: Glucose Point of Care 275 mg/dL (70-110)
[2021-05-08] MEDS: calcium carbonate 500 mg Chew Tablet 1000 MG PO (23:38)
[2021-05-09 06:00] VITALS: BP 111/75; PULSE 79; RESP 18; TEMP 36.7; O2SAT 97
--- NOTE | 2021-05-09 06:18 | PC.NURSE ---
Offered patient shower or bath, patient refused stating It's too cold and I won't take a cold shower. Reassured patient that we would warm up shower room or bath for her and ensure it is comfortable and that it is sanitized between uses. Patient continued to refuse and stated, No, thats not good enough, I won't do it.
[2021-05-09 06:27] LABS: Glucose Point of Care 187 mg/dL (70-110)
[2021-05-09] MEDS: buPROPion XL (24 HR) 150 mg Tablet PO (08:35)
[2021-05-09] MEDS: sertraline 50 mg Tablet 100 MG PO (08:35)
[2021-05-09] MEDS: magnesium oxide 400 mg tablet PO ×4 (08:35→21:33)
[2021-05-09] MEDS: insulin lispro 100 unit/1 mL SUBCUT ×4 (08:35→21:29)
[2021-05-09 09:22] LABS: Blood Urea Nitrogen 17 mg/dL (6-20); Calcium 10.3 mg/dL (8.5-10.5); Carbon Dioxide 21 mmol/L (22-29); Chloride 96 mmol/L (98-107); Creatinine Clr Calc Pharmacy 126.4148; Glucose 352 mg/dL (65-115); Osmolality Calculated 292 mOsm/kg (285-295); Sodium 133 mmol/L (136-145)
[2021-05-09 09:25] LABS: Anion Gap 20.5 (5-19); Potassium 4.5 mmol/L (3.5-5.1)
[2021-05-09 10:20] LABS: Glucose Point of Care 292 mg/dL (70-110)
[2021-05-09 11:21] LABS: Glucose Point of Care 245 mg/dL (70-110)
--- NOTE | 2021-05-09 13:01 | NPU.GN ---
[facility] Group Topic: Group Discussion/ Choices General Mood of Group: Aurelia did attend and participate in group. She was social, well groomed, and seemed to be mentally stable.
[2021-05-09 14:00] VITALS: BP 128/86; PULSE 75; RESP 16; TEMP 36.7; O2SAT 98
[2021-05-09] MEDS: acetaminophen 325 mg Tablet 650 MG PO (15:32)
--- NOTE | 2021-05-09 15:53 | W.PM.NPUPNS ---
Subjective NPU Subjective: Interval history: Patient presents today with continued irritability and mostly focused on whether she will be going home soon because she is upset about her medications being discontinued. We discussed the concerns about her treatment avoidance along with her unresponsive episodes while she was here as foundational proof of her not being ready for discharge. We discussed having the hospitalist return and work with her on concerns of not having her GERD adequately addressed. Mental Status Exam MSE Comments: This is an overweight, versus obese, white female, with hospital scrubs on, with adequate grooming, and eye contact. No abnormal movements except for mild psychomotor retardation. More cooperative with exam in mild distress. Speech was slightly decreased rate and volume. Mood frustrated; affect congruent and irritable. Thought process, organized. Thought content: patient denies suicidal or homicidal ideation, no delusions reported or noted, she denied auditory visual hallucinations. Attention and Transient intact memory was more reliable but number formally tested. She alert and oriented x3.. Insight and judgment are impaired, impulse control impaired. Vitals/I&O/Wt Last Vital Signs Temp 98.1 F 05/09/21 14:00 Pulse 75 05/09/21 14:00 Resp 16 05/09/21 14:00 BP 128/86 05/09/21 14:00 Pulse Ox 98 05/09/21 14:00 Weight last 48 hrs Weight 63.503 kg Weight 63.503 kg Data NPU : 05/09/21 08:40 A&P Additional A&P Information (1) PTSD (post-traumatic stress disorder): (2) Borderline personality disorder: (3) Suicidal ideation: (4) Depression: Additional A&P Information This is a 41-year-old, white female, with post-traumatic stress disorder, borderline personality disorder, anxiety disorder, unspecified, suicidal ideation, and recently been non-adherent with her medication, who presents open to medication adjustments as long as they do not create problems if her status were to change. RECOMMENDATION AND PLAN: 1. Continue current medication. Except will make the changes as directed by hospitalist given her presentation and will monitor for changes. 2. Encourage individual, group, and milieu therapy. 3. Continue q-15 minute checks for safety. 4. Appreciate hospitalist consult and will follow recommendations and monitor for changes in her presentation, and will request them to weigh in on what to do about her reflux. Involuntary Hold Information 96 Hour Hold: 96 Hour Involuntary Admission: No Attestations NPU Medical Necessity Statement*: Inpatient hospitalization is medically necessary and the clinically appropriate intervention, at this time. We will monitor medications and make changes as indicated. Likely length of stay is 1-3 days. Coding Level of Care Code Acute 2 Year Olds Preschool Teacher for Mir Rosas
[2021-05-09 16:26] LABS: Glucose Point of Care 216 mg/dL (70-110)
[2021-05-09] MEDS: lurasidone 20 mg Tablet 40 MG PO (16:31)
--- NOTE | 2021-05-09 17:34 | PC.NURSE ---
patient complains of heartburn and refuses TUMS. Dr Saha notified and said call hospitalist. Rcvd telephone order from Dr Malave for GI Cocktail PO once and Protonix 20mg PO BID
[2021-05-09] MEDS: lidocaine 2% viscous 15 ML, aluminum-mag hydrox-simethicon 30 ML, sucralfate oral liq 1 GM PO (18:08)
[2021-05-09] MEDS: pantoprazole DR 40 mg Tablet 20 MG PO (18:08)
[2021-05-09 19:28] LABS: Glucose Point of Care 239 mg/dL (70-110)
[2021-05-09] MEDS: tizanidine 4 mg Tablet PO (21:33)
[2021-05-09 21:44] LABS: Glucose Point of Care 337 mg/dL (70-110)
--- NOTE | 2021-05-09 23:14 | PC.NURSE ---
PRN Administration: Patient c/o generalized pain 10/10, requested PRN tizanidine PO as ordered.
[2021-05-10 06:00] VITALS: BP 115/72; PULSE 67; RESP 18; O2SAT 98
[2021-05-10 07:25] LABS: Glucose Point of Care 153 mg/dL (70-110)
[2021-05-10] MEDS: pantoprazole DR 40 mg Tablet 20 MG PO ×2 (10:10→18:02)
[2021-05-10] MEDS: sertraline 50 mg Tablet 100 MG PO (10:10)
[2021-05-10] MEDS: magnesium oxide 400 mg tablet PO ×4 (10:10→21:50)
[2021-05-10] MEDS: buPROPion XL (24 HR) 150 mg Tablet PO (10:10)
[2021-05-10 11:32] LABS: Glucose Point of Care 249 mg/dL (70-110)
[2021-05-10] MEDS: insulin lispro 100 unit/1 mL SUBCUT ×4 (11:53→21:46)
--- NOTE | 2021-05-10 12:14 | NPU.GN ---
[facility] Topic:Depression Bingo General Mood of Group: Aurelia did not attend group she wanted to sleep.
[2021-05-10 14:00] VITALS: BP 106/65; PULSE 71; RESP 18; TEMP 36.9; O2SAT 96
--- NOTE | 2021-05-10 17:06 | P.NPUPN_ITS ---
Subjective NPU Subjective: Interval history: Patient presents today reporting that the changes that the doctor made today in in regards to her reflux. She seems to be adjusting to the medication changes. She denies lethality and was focused on what she might be able to return home. We discussed possible discharge tomorrow and likely discharge in the next 48 hours. Mental Status Exam MSE Comments: This is an overweight, versus obese, white female, with hospital scrubs on, with adequate grooming, and eye contact. No abnormal movements except for resolving psychomotor retardation. More cooperative with exam in no acute distress. Speech was slightly decreased rate and volume. Mood little better; affect congruent. Thought process, organized. Thought content: patient denies suicidal or homicidal ideation, no delusions reported or noted, she denied auditory visual hallucinations. Attention and concentration intact memory was more reliable but none were formally tested. She is alert and oriented x3.. Insight and judgment are limited but improving, impulse control limited. Vitals/I&O/Wt Last Vital Signs Temp 98.4 F 05/10/21 14:00 Pulse 71 05/10/21 14:00 Resp 18 05/10/21 14:00 BP 106/65 05/10/21 14:00 Pulse Ox 96 05/10/21 14:00 Data NPU : 05/09/21 08:40 A&P Additional A&P Information (1) PTSD (post-traumatic stress disorder): (2) Borderline personality disorder: (3) Suicidal ideation: (4) Depression: Additional A&P Information This is a 41-year-old, white female, with post-traumatic stress disorder, borderline personality disorder, anxiety disorder, unspecified, suicidal ideation, and recently been non-adherent with her medication, who presents open to medication adjustments as long as they do not create problems if her pregna ncy status were to change. RECOMMENDATION AND PLAN: 1. Continue current medication. Except will make the changes as directed by hospitalist given her presentation and will monitor for changes. 2. Encourage individual, group, and milieu therapy. 3. Continue q-15 minute checks for safety. 4. Appreciate hospitalist consult and will follow recommendations and monitor for changes in her presentation. Involuntary Hold Information 96 Hour Hold: 96 Hour Involuntary Admission: No Attestations NPU Medical Necessity Statement*: npatient hospitalization is medically necessary and the clinically appropriate intervention, at this time. We will monitor medications and make changes as indicated. Likely length of stay is 1-2 days. Coding Level of Care Code Acute Environmental Compliance Inspector for Mir Rosas
[2021-05-10 17:54] LABS: Glucose Point of Care 381 mg/dL (70-110)
[2021-05-10] MEDS: lurasidone 20 mg Tablet 40 MG PO (18:01)
[2021-05-10] MEDS: tizanidine 4 mg Tablet PO (18:02)
[2021-05-10] MEDS: hyDROXYzine 25 mg Capsule 50 MG PO (18:03)
[2021-05-10 21:06] VITALS: BP 106/65; PULSE 71; RESP 18; TEMP 36.9; O2SAT 96
[2021-05-10 21:15] LABS: Glucose Point of Care 357 mg/dL (70-110)
[2021-05-11 06:00] VITALS: BP 108/69; PULSE 76; RESP 17; TEMP 36.6; O2SAT 97
[2021-05-11 06:22] LABS: Glucose Point of Care 116 mg/dL (70-110)
[2021-05-11] MEDS: buPROPion XL (24 HR) 150 mg Tablet PO (09:14)
[2021-05-11] MEDS: sertraline 50 mg Tablet 100 MG PO (09:14)
[2021-05-11] MEDS: pantoprazole DR 40 mg Tablet 20 MG PO (09:14)
[2021-05-11] MEDS: magnesium oxide 400 mg tablet PO ×3 (09:14→17:10)
[2021-05-11 11:44] LABS: Glucose Point of Care 413 mg/dL (70-110)
[2021-05-11 11:44] LABS: Glucose Point of Care 431 mg/dL (70-110)
[2021-05-11] MEDS: insulin lispro 100 unit/1 mL 10 UNIT SUBCUT ×2 (12:06→17:11)
[2021-05-11] MEDS: insulin lispro 100 unit/1 mL SUBCUT (12:07)
--- NOTE | 2021-05-11 12:49 | NPU.GN ---
[facility] Topic: Wheel of Positive thoughts versus Negative Thoughts General Mood of Group: Aurelia did not attend or participate in group today.
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
[2021-05-11 14:11] VITALS: BP 108/69; PULSE 76; RESP 17; TEMP 36.6; O2SAT 97
[2021-05-11 14:31] LABS: Glucose Point of Care 224 mg/dL (70-110)
[2021-05-11] MEDS: ondansetron 4 MG Tablet PO (14:58)
[2021-05-11 16:38] LABS: Glucose Point of Care 235 mg/dL (70-110)
[2021-05-11] MEDS: lurasidone 20 mg Tablet 40 MG PO (17:10)
== END 2021-05-11 17:33 | disposition home or self-care (01) | DRG 881 ==
PROVIDERS: Hospitalist; Internal Medicine; Admitting Provider Psychiatry & Neurology Psychiatry; Visit Provider Psychiatry & Neurology Psychiatry
DX: F32.A Depression, unspecified (principal); R45.851 Suicidal ideations; F17.210 Nicotine dependence, cigarettes, uncomplicated; F43.10 Post-traumatic stress disorder, unspecified; F60.3 Borderline personality disorder; F41.9 Anxiety disorder, unspecified; Z91.14 Patient's other noncompliance with medication regimen; E11.649 Type 2 diabetes mellitus with hypoglycemia without coma; E11.51 Type 2 diabetes mellitus with diabetic peripheral angiopathy without gangrene; Z81.8 Family history of other mental and behavioral disorders; Z79.84 Long term (current) use of oral hypoglycemic drugs; Z79.4 Long term (current) use of insulin
CPT/HCPCS: 36415; 36416; 80048; 80307; 81001; 82962; 83036; 83735; 96372; 97150; 97165; J1610; J1815; Q0162